=== PATIENT | female | born 1960 | race Caucasian/White ===

== ENCOUNTER 2020-01-24 12:56 | Inpatient (IN) ==
[2020-01-24] MEDS ORDERED: NS 1,000 ML IV PRN (13:22)
--- NOTE | 2020-01-24 14:08 | Diag Imaging Result Doc PS360 ---
CT HEAD W/O CONTRAST - 01/24/2020 INDICATION: WEAKNESS COMPARISON: 11/24/2016 FINDINGS: The ventricles and sulci are normal in size and contour. No intracranial mass or hemorrhage. The skull is intact. The sinuses mastoids and middle ears are clear. IMPRESSION: Negative exam. This exam was performed using automated exposure control, adjustment of mA or kV according to patient size, and/or use of iterative reconstruction technique Electronically signed by Carlos Schmidt 01/24/2020 2:05 PM
--- NOTE | 2020-01-24 14:11 | Diag Imaging Result Doc PS360 ---
CHEST-PORTABLE - 01/24/2020 INDICATION: stroke like symptoms COMPARISON: 06/01/2019 FINDINGS: The lungs are normally expanded and clear. Heart size and mediastinal contours are normal. No pneumothorax or pleural effusion. IMPRESSION: Negative exam. Electronically signed by Carlos Schmidt 01/24/2020 2:09 PM
[2020-01-24] MEDS ORDERED: ASPIRIN PO ONE (14:20)
[2020-01-24 14:44] LABS: URINE SOURCE CLEAN CATCH
[2020-01-24 14:45] LABS: BASO# 0.04 X1000 (0.0-0.2); BASO% 0.9 % (0.0-0.8); EOS% 2.2 % (0.0-10.0); HEMATOCRIT 36.4 % (37.0-47.0); IMM GRAN# 0.02 X1000 (0.0-0.04); IMM GRAN% 0.4 % (0.0-0.5); LYMPH# 0.27 X1000 (1.2-3.4); LYMPH% 5.9 % (20.5-51.1); MONO# 0.48 X1000 (0.11-0.59); MONO% 10.5 % (1.7-9.3); MPV 11.1 FL (7.4-10.4); NEUT# 3.65 X1000 (1.4-6.5); NEUT% 80.1 % (42.2-75.2); PLT 199 X1000 (130-400); RBC 4.44 XMIL (4.2-5.4); RDW 14.2 % (11.5-14.5); WBC 4.56 X1000 (4.8-10.8)
[2020-01-24 14:48] LABS: BILIRUBIN URINE NEGATIVE (NEGATIVE); BLOOD URINE NEGATIVE (NEGATIVE); COLOR YELLOW; GLUCOSE URINE NEGATIVE (NEGATIVE); KETONE URINE NEGATIVE (NEGATIVE); LEUKOCYTES URINE NEGATIVE (NEGATIVE); NITRITE URINE NEGATIVE (NEGATIVE); PH URINE 6.5; PROTEIN URINE NEGATIVE (NEGATIVE); SP GRAVITY URINE 1.009; TURBIDITY URINE CLEAR (CLEAR); UROBILINOGEN URINE NORMAL (NORMAL)
[2020-01-24 14:49] LABS: UR EPITHELIAL CELLS <10 /HPF (<10); URINE BACTERIA NEGATIVE /HPF; URINE RBC <10 /HPF (<10); URINE WBC <10 /HPF (<10)
[2020-01-24 14:52] LABS: INR 0.83; PROTIME 11.4 Seconds (11.0-16.0); PTT 23.6 Seconds (22.3-41.8)
[2020-01-24 15:03] LABS: UR AMPHETAMINES QUAL NONE DETECTED (NONE DETECT); UR BARBITUATES QUAL NONE DETECTED (NONE DETECT); UR BENZODIAZEPIN QUAL NONE DETECTED (NONE DETECT); UR CANNABINOIDS QUAL NONE DETECTED (NONE DETECT); UR COCAINE QUAL NONE DETECTED (NONE DETECT); UR METHADONE QUAL NONE DETECTED (NONE DETECT); UR OPIATES QUAL NONE DETECTED (NONE DETECT); UR OXYCODONE QUAL NONE DETECTED (NONE DETECT); UR PCP QUAL NONE DETECTED (NONE DETECT)
[2020-01-24 15:05] LABS: AGAP 15; ALB/GLOB RATIO 1.7; ALKALINE PHOSPHATASE 110 U/L (32-104); BUN 14 mg/dL (8-22); CALCIUM 9.3 mg/dL (8.8-10.2); CHLORIDE 105 mmol/L (98-107); COSMO 281; CREATININE 0.7 mg/dL (0.5-0.9); ESTIMATED GFR > 60; GLUCOSE 91 mg/dL (70-104); GOT 38 U/L (10-30); GPT 65 U/L (10-36); SODIUM 141 mmol/L (136-145); TCO2 21 mmol/L (25-35); TOTAL BILIRUBIN 0.22 mg/dL (0.20-1.00); TOTAL PROTEIN 6.4 g/dL (6.3-8.3)
--- NOTE | 2020-01-24 15:07 | PROVIDER DOCUMENTATION ---
This chart was entered by Roxi Lopez Scribe, acting as scribe for Danish Olivas MD. HPI-Neurological Disorder - General Chief Complaint: Stroke-Like Symptoms Stated Complaint: MS-UNABLE TO MOVE FOOT Time Seen by Provider: 01/24/20 13:15 Source: patient Allergies/Adverse Reactions: Patient Allergies Allergy/AdvReac Type Severity Reaction Status Date / Time Sulfa (Sulfonamide Allergy RASH Verified 01/13/15 21:36 Antibiotics) Home Medications: Home Medication List Medication Instructions Recorded Confirmed Last Taken Type Baclofen 10 mg PO TID 11/24/16 01/05/19 01/08/19 21:00 History Meloxicam 7.5 mg PO EVERY OTHER DAY 11/24/16 01/05/19 01/08/19 21:00 History Armodafinil [Nuvigil] 150 mg PO DAILY 01/05/19 01/05/19 01/08/19 08:00 History Ascorbic Acid [Vitamin C] 1,000 mg PO DAILY 01/05/19 01/05/19 01/08/19 08:00 History Aspirin 81 mg PO EVERY OTHER DAY 01/05/19 01/05/19 Unknown History Atomoxetine HCl 40 mg PO DAILY 01/05/19 01/05/19 01/08/19 08:00 History C,E,Zinc,Copper 11/Zkwzd7y/Lut 1 ea PO DAILY 01/05/19 01/05/19 01/08/19 08:00 History [Ocuvite Adult 50 Plus Softgel] Calcium Carb,Gluc/Mag Ox,Gluc 1 ea PO DAILY 01/05/19 01/05/19 01/08/19 08:00 History [Calcium Magnesium Caplet] Cholecalciferol (Vitamin D3) 2,000 unit PO DAILY 01/05/19 01/05/19 01/08/19 08:00 History [Vitamin D3] Chromium/Herbal Complex No.238 1 ea PO DAILY 01/05/19 01/05/19 01/08/19 08:00 History [Green Tea Caplet] Fingolimod HCl [Gilenya] 0.5 mg PO DAILY 01/05/19 01/05/19 01/08/19 08:00 History Flaxseed Oil [Flax Seed Oil] 1,000 mg PO DAILY 01/05/19 01/05/1919 08:00 History Folic Acid/Vit B Complex and C 400 mcg PO DAILY 01/05/19 01/05/19 01/08/19 08:00 History [Super B-Complex Folic-Vit C Tb] Levothyroxine Sodium [Synthroid] 0.5 tab PO DAILY 01/05/19 01/05/19 01/08/19 08 :00 History Milk Thistle/Nac/Dandel/[place] 1 ea PO DAILY 01/05/19 01/05/19 01/08/19 08:00 History [Liver Complex Tablet] [place]-3 Fatty Acids/Fish Oil [Fish 1 ea PO DAILY 01/05/19 01/05/19 01/08/19 08:00 History Oil 1,000 mg Capsule] Temazepam 15 mg PO DAILY 01/05/19 01/05/19 01/08/19 08:00 History Turmeric Root Extract [Turmeric 500 mg PO DAILY 01/05/19 01/05/19 01/08/19 08:00 History Curcumin] Ubidecarenone [Co Q-10] 100 mg PO DAILY 01/05/19 01/05/19 01/08/19 08:00 History Vitamin E 1,000 unit PO DAILY 01/05/19 01/05/19 01/08/19 08:00 History Docusate Sodium [Colace] 100 mg PO BID #30 cap 01/09/19 Unknown Rx Hydrocodone/Acetaminophen [[place] 1 ea PO Q4-6H PRN PRN #20 tab 01/09/19 Unknown Rx 7.5-325 Tablet] Ondansetron HCl [Zofran] 4 mg PO PRN PRN #10 tab 01/09/19 Unknown Rx - History of Present Illness-Neuro Nature of Presenting Problem: pt is a 60 yowf c/o LLE weakness and pain. pt sts got up at 0643 and symptoms worsened and is unable to use LLE. pt has hx of MS and is [place]. [place] pt also reports mild lopez. pt is in NAD. Severity: reports: mild Onset/Duration: reports: gradual, this morning Timing: reports: still present, getting worse Context: reports: other (LLE weak and painful) Character of Altered Mental Status: reports: N/A Any recent trauma/injury?: reports: none Character of Deficits: reports: new weakness New weakness or altered sensation location:: reports: LLE Cognitive Baseline: alert, oriented x3 Gait Baseline: walks without assistance Associated Symptoms: reports: headache Review of Systems - Adult - REVIEW OF SYSTEMS - ADULT Constitutional: reports: no symptoms reported. denies: fever, fatique, night sweats Eyes: reports: no symptoms reported Ears, Nose, Mouth & Throat: reports: no symptoms reported Cardiovascular: reports: no symptoms reported Respiratory: reports: no symptoms reported Gastrointestinal: reports: no symptoms reported Genitourinary: reports: no symptoms reported Musculoskeletal: reports: see HPI, bone pain (LLE), muscle weakness (LLE) Integumentary: reports: no symptoms reported Neurological: reports: see HPI, headache/migraines. denies: loss of balance, numbness, paresthesia, tremors Psychiatric: reports: no symptoms reported Endocrine: reports: no symptoms reported Hematologic/Lymphatic: reports: no symptoms reported Allergic/Immunologic: reports: no symptoms reported All Other Systems: Reviewed and Negative Past History - Adult - PAST MEDICAL HISTORY-ADULT Review of Records: reports: Nursing Assessment Review, Medications Reviewed, Social history reviewed & non-contributory. Major Childhood Illnesses: reports: denies history Cardiovascular: reports: heart valve problem (Mitral valve prolapse) Respiratory: reports: denies history Gastrointestinal: reports: denies history Obstetrical/Gynecological: reports: denies history Genitourinary: reports: denies history Musculoskeletal: reports: denies history Neurological: reports: Multiple Sclerosis Endocrine/Immune: reports: denies history Other Conditions: reports: denies history - PRIOR SURGERIES/PROCEDURES Surgical/Procedure History: reports: BTL, other (Tubal ligation and rt foot surgery) - IMMUNIZATION STATUS Childhood Immunizations: See Nurse Assessment Flu Vaccine: See Nurse Assessment - FAMILY HISTORY Family History: reviewed, not pertinent - SOCIAL HISTORY Smoking: non-smoker Substance Use: none/never Physical Exam- Neurological - Physical Exam-Neuro Initial Vital Signs Reviewed: Yes General Appearance: appears well, alert, no apparent distress. negative: slow to respond, obtunded, combative Eye Exam: bilateral eye: normal inspection, PERRL, EOMI HENMT: normocephalic/atraumatic, moist mucous membranes Head Injury: no evidence of injury Neck: non-tender, full range of motion, supple, normal inspection Respiratory: chest non-tender, lungs clear, normal breath sounds Cardiovascular: normal peripheral pulses, regular rate, rhythm Abdominal Exam: normal bowel sounds, non tender, soft Extremity: abnormal NV exam (LLE new weakness), tenderness (mild tenderness on palp LLE). 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 negative: no motor deficit, sensory deficit, weak motor strength RUE, weak motor strength LUE Neurologic: motor weakness (LLE). negative: grossly normal, no motor/sensory deficits, sensory deficit Integumentary: normal color, normal turgor, warm/dry Psych/Mental Status: normal mood/affect, normal thought content, normal thought process, oriented x 3 - Glascow Coma Scale Best Eye Response: (4) open spontaneously Best Verbal Response: (5) oriented Best Motor Response: (6) obeys commands Total Glascow Score: 15 Progress - PLAN OF CARE/RESULTS Progress/Plan/Lab Results: Vital Signs - 8 hr 01/24/20 13:05 Temperature 98.1 F Pulse Rate 79 Respiratory Rate 16 Blood Pressure 137/81 O2 Sat by Pulse Oximetry 98 Laboratory Results - last 24 hr 01/24/20 01/24/20 01/24/20 13:54 14:07 14:07 WBC RBC Hgb Hct MCV MCH MCHC RDW Std Deviation Plt Count MPV Immature Gran % (Auto) Neut % (Auto) Lymph % (Auto) [place] % (Auto) Eos % (Auto) Baso % (Auto) Immature Gran # (Auto) Neut # (Auto) Lymph # (Auto) [place] # (Auto) Eos # (Auto) Baso # (Auto) PT INR PTT (Actin FS) Sodium Potassium Chloride Carbon Dioxide Anion Gap BUN Creatinine Estimated GFR/1.73 m2 BUN/Creatinine Ratio Glucose POC Glucose 86 Calculated Osmolality Calcium Total Bilirubin AST ALT Alkaline Phosphatase Troponin T High Sens Total Protein Albumin Globulin Albumin/Globulin Ratio Urine Source CLEAN CATCH Urine Color YELLOW Urine Turbidity CLEAR Urine pH 6.5 Ur Specific [place] 1.009 Urine Protein NEGATIVE Ur Glucose (Stick) NEGATIVE Ur Ketones (Stick) NEGATIVE Urine Blood NEGATIVE Urine Nitrite NEGATIVE Urine Bilirubin NEGATIVE Urobilinogen Dipstick NORMAL Urine Leukocytes NEGATIVE Urine WBC (Auto) <10 Urine RBC (Auto) <10 U Epithel Cells (Auto) <10 Urine Bacteria (Auto) NEGATIVE Urine Opiates Screen NONE DETECTED Ur Oxycodone Screen NONE DETECTED Ur Methadone, Qual NONE DETECTED Ur Barbiturates Screen NONE DETECTED Ur Phencyclidine Scrn NONE DETECTED Ur Amphetamines Screen NONE DETECTED U Benzodiazepines Scrn NONE DETECTED Urine Cocaine Screen NONE DETECTED U Cannabinoids Screen NONE DETECTED 01/24/20 01/24/20 01/24/20 14:31 14:31 14:31 WBC 4.56 L RBC 4.44 Hgb 12.0 Hct 36.4 L MCV 82.0 MCH 27.0 MCHC 33.0 RDW Std Deviation 14.2 Plt Count 199 MPV 11.1 H Immature Gran % (Auto) 0.4 Neut % (Auto) 80.1 H Lymph % (Auto) 5.9 L [place] % (Auto) 10.5 H Eos % (Auto) 2.2 Baso % (Auto) 0.9 H Immature Gran # (Auto) 0.02 Neut # (Auto) 3.65 Lymph # (Auto) 0.27 L [place] # (Auto) 0.48 Eos # (Auto) 0.10 Baso # (Auto) 0.04 PT INR PTT (Actin FS) Sodium 141 Potassium 4.0 Chloride 105 Carbon Dioxide 21 L Anion Gap 15 BUN 14 Creatinine 0.7 Estimated GFR/1.73 m2 > 60 BUN/Creatinine Ratio 20 Glucose 91 POC Glucose Calculated Osmolality 281 Calcium 9.3 Total Bilirubin 0.22 AST 38 H ALT 65 H Alkaline Phosphatase 110 H Troponin T High Sens < 6 Total Protein 6.4 Albumin 4.0 Globulin 2.4 Albumin/Globulin Ratio 1.7 Urine Source Urine Color Urine Turbidity Urine pH Ur Specific [place] Urine Protein Ur Glucose (Stick) Ur Ketones (Stick) Urine Blood Urine Nitrite Urine Bilirubin Urobilinogen Dipstick Urine Leukocytes Urine WBC (Auto) Urine RBC (Auto) U Epithel Cells (Auto) Urine Bacteria (Auto) Urine Opiates Screen Ur Oxycodone Screen Ur Methadone, Qual Ur Barbiturates Screen Ur Phencyclidine Scrn Ur Amphetamines Screen U Benzodiazepines Scrn Urine Cocaine Screen U Cannabinoids Screen 01/24/20 14:31 WBC RBC Hgb Hct MCV MCH MCHC RDW Std Deviation Plt Count MPV Immature Gran % (Auto) Neut % (Auto) Lymph % (Auto) [place] % (Auto) Eos % (Auto) Baso % (Auto) Immature Gran # (Auto) Neut # (Auto) Lymph # (Auto) [place] # (Auto) Eos # (Auto) Baso # (Auto) PT 11.4 INR 0.83 PTT (Actin FS) 23.6 Sodium Potassium Chloride Carbon Dioxide Anion Gap BUN Creatinine Estimated GFR/1.73 m2 BUN/Creatinine Ratio Glucose POC Glucose Calculated Osmolality Calcium Total Bilirubin AST ALT Alkaline Phosphatase Troponin T High Sens Total Protein Albumin Globulin Albumin/Globulin Ratio Urine Source Urine Color Urine Turbidity Urine pH Ur Specific [place] Urine Protein Ur Glucose (Stick) Ur Ketones (Stick) Urine Blood Urine Nitrite Urine Bilirubin Urobilinogen Dipstick Urine Leukocytes Urine WBC (Auto) Urine RBC (Auto) U Epithel Cells (Auto) Urine Bacteria (Auto) Urine Opiates Screen Ur Oxycodone Screen Ur Methadone, Qual Ur Barbiturates Screen Ur Phencyclidine Scrn Ur Amphetamines Screen U Benzodiazepines Scrn Urine Cocaine Screen U Cannabinoids Screen Orders Category Date Time Status Cardiac Monitoring DIRECTED Care 01/24/20 13:22 Active Finger Stick Blood Sugar (ED) DIRECTED Care 01/24/20 13:22 Active Misc. NRSG Communication Order DIRECTED Care 01/24/20 13:22 Active Saline Loc NOW Care 01/24/20 13:22 Active CHEST-PORTABLE [RAD] Stat Exams 01/24/20 13:[address] HEAD W/O CONTRAST [CT] Stat Exams 01/24/20 13:13 Completed CBC WITH ELECTRONIC DIFF [HEME] Stat Lab 01/24/20 14:31 Completed COMPREHENSIVE METABOLIC PANEL [CHEM] Stat Lab 01/24/20 14:31 Completed CRP HIGH SENSITIVITY Stat Lab 01/24/20 15:06 Ordered PROTIME WITH INR [COAG] Stat Lab 01/24/20 14:31 Completed PTT [COAG] Stat Lab 01/24/20 14:31 Completed SED RATE [HEME] Stat Lab 01/24/20 15:06 Ordered TROPONIN T HIGH SENSITIVITY Stat Lab 01/24/20 14:31 Completed URINALYSIS W/POSS RFLX CULT [URINALYSIS] Stat Lab 01/24/20 14:07 Completed URINE DRUG SCREEN Stat Lab 01/24/20 14:07 Completed 0.9% Sodium Chloride Inj [Ns] 1,000 ml Med 01/24/20 13:22 Active IV 100 mls/hr Aspirin Med 01/24/20 14:20 Discontinued 325 mg PO NOW ONE EKG [EKG] Stat Ther 01/24/20 13:22 Ordered Result Diagrams: 01/24/20 14:31 01/24/20 14:31 - REASSESSMENT Reassessment #1 Time Reassessed: 14:38 Status: unchanged (NO CHANGE IN SYMPTOMS. NOT CANDIDATE FOR TPA DUE TO ONSET > 4.5 HRS AND SYMPTOMS NOT DEFINITELY DUE TO ISCHEMIC STROKE. POSSIBLE MS. DISCUSSED WITH HOSPITALIST - AWAITING LAB RESULTS WILL ADMIT) - XRAY 1 XRAY Study: Chest Impression: Normal, See EMR Report ( CHEST-PORTABLE - 01/24/2020 INDICATION: stroke like symptoms COMPARISON: 06/01/2019 FINDINGS: The lungs are normally expanded and clear. Heart size and mediastinal contours are normal. No pneumothorax or pleural effusion. IMPRESSION: Negative exam. Electronically signed by Carlos Schmidt 01/24/2020 2:09 PM) - CT/MRI 1 CT Study: Head Impression: Normal, See EMR Report ( CT HEAD W/O CONTRAST - 01/24/2020 INDICATION: WEAKNESS COMPARISON: 11/24/2016 FINDINGS: The ventricles and sulci are normal in size and contour. No intracranial mass or hemorrhage. The skull is intact. The sinuses mastoids and middle ears are clear. IMPRESSION: Negative exam. This exam was performed using automated exposure control, adjustment of mA or kV according to patient size, and/or use of iterative reconstruction technique Electronically signed by Carlos Schmidt 01/24/2020 2:05 PM) - CONSULTS/PCP/HOSPITALIST Notification #1 *Consult/PCP/Hospitalist*: Melissa Time Discussed: 14:28 Consult Disposition: Admit, other Departure - Departure Date of Disposition Decision: 01/24/20 Time of Disposition Decision: 14:37 DIAGNOSIS: CVA (cerebral vascular accident) Disposition: ADMITTED INPATIENT 09 Certified Medical Emergency: Emergent Condition: Stable Referrals and Follow-Ups: Brody Contreras MD [Primary Care Provider] - - Critical Care Note This patient required my direct & personal management of CC.: No Attestation - Physician/ RAZIA Attestation Patient care was provided by Advanced Practice Provider:: No The physician spent face to face time with patient:: Yes Advanced Practice Provider documentation review:: Supervising physician onsite and consulted in the evaluation and care of this patient. The physician did have a face to face encounter with the patient. - NIH Stroke Scale NIH Type: Initial Evaluation Level of Consciousness: 0-Alert LOC Questions (ask month and age): 0-Answers Both Correctly LOC Commands (ask to open & close eyes;make a fist, let go): 0-Obeys Both Correctly Best Gaze (horizontal eye movement): 0-Normal Visual (use finger movement, counting or visual threat): 0-No Visual Loss Facial Palsy (show teeth or raise eyebrows & close eyes tght: 0-Symmetrical Movement Motor Function-left arm: 0-Normal Motor Function-right arm: 0-Normal Motor Function-left le-Some Effort Against [place] Motor Function-right le-Normal Limb Ataxia(zhoheh-bxpm-dvflie, or heel to brito): 0-No Ataxia Sensory(pin prick to face,arms,trunk,legs-compare side/side): 0-No Ataxia Best Language(name item/read sentence.Ex-Down to Earth): 0-No Aphasia Dysarthria(Pt read words or say words Ex.Mama,Tip-Top,Thanks: 0-Normal Articulation Extinction and Inattention: 0-Normal Stroke tPA Guidelines - Inclusion Criteria for IV tPA Onset <3 hours ago *OR* 3-4.5 hours ago: No This chart was documented by the indicated scribe, (Roxi Lopez, Scribe) and accurately reflects the services I performed and decisions made by me, Danish Olivas MD, as attested by the provider's signature.
[2020-01-24] MEDS: NS 1,000 ML IV SCH (16:00)
--- NOTE | 2020-01-24 16:32 | HISTORY AND PHYSICAL ---
PRIMARY CARE PHYSICIAN: Dr. Brody Contreras. CHIEF COMPLAINT: Left lower extremity weakness. HISTORY OF PRESENT ILLNESS: This is a 60-year-old female with a history of multiple sclerosis that affected the right side and hypothyroid. She presents to the emergency room after waking this morning with inability to move her left leg, having numbness to her left groin and perineal area. 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 She stated when she went to bed she was in her normal state of health. This morning she got up to go the bathroom, was unable to move her left leg. She does have chronic right side weakness due to her MS. She states that she tried to hold onto the wall and make it to the bathroom, but she fell. In the emergency room she was noted to have left lower extremity weakness. She also complains of her posterior leg from just at the lower buttocks area down to feeling like it is being shocked with electricity when you touch it or move her leg. She does state this is new also. PAST MEDICAL HISTORY: Multiple sclerosis with right-sided weakness, mitral valve prolapse, hypothyroid. PAST SURGICAL HISTORY: Cholecystectomy. SOCIAL HISTORY: She denies any alcohol, tobacco, or illicit drug use. She is , lives with her . ALLERGIES: Sulfa, which causes a rash. HOME MEDICATIONS: A list will be obtained by the nursing staff and once verified will review and restart as appropriate. REVIEW OF SYSTEMS: Discussed with patient with pertinent positives stated in the HPI. She denied any syncope or dizziness, any chest pain or palpitations, any cough, fever, chills, night sweats, any nausea, vomiting, diarrhea, constipation, black or bloody vomitus or stools or any hematuria or dysuria. PHYSICAL EXAMINATION: GENERAL: This is a 60-year-old female who is lying on the stretcher in the emergency room in no distress. VITAL SIGNS: Blood pressure is 137/81 with heart rate of 79, respirations are 16, temperature is 98.1 degrees with room air saturations 98%. EYES: Pupils equal, round, react to light. EOMs are intact. Sclerae anicteric. HEENT: Head is normocephalic, atraumatic. Mucous membranes are moist. NECK: Supple with trachea midline. CARDIOVASCULAR: Regular rate and rhythm. S1 and S2 are appreciated. No murmur. PULMONARY: Breath sounds are clear. No increased work of breathing noted. Chest rises and falls symmetrically with respiration. GASTROINTESTINAL: Abdomen is soft, nontender, nondistended with bowel sounds in all four quadrants. EXTREMITIES: No clubbing, cyanosis, or edema. NEUROLOGIC: She is alert and oriented. Pupils are equal, round, react to light. EOMs are intact. Speech is clear. She has no tongue or uvula deviation. Equal nasal flaring. Equal shoulder shrug. She has no pronator drift. Wet Process Operator are equal. She does not move left lower extremity. She does complain of pain and tenderness on palpation. LABS: WBC is 4.5 with hemoglobin 12, hematocrit 36.4, and platelets 199,000. INR 0.83. Sodium 141, potassium 4, BUN 14, creatinine 0.7 with a glucose of 91. Urinalysis is essentially negative. Urine drug screen reveals none detected. IMAGING: CT of the head, negative exam. Ventricles and sulci are normal in size and color. No intracranial mass or hemorrhage. Skull is intact. Sinuses, mastoids, and middle ears are clear. Chest x-ray revealed negative exam. Lungs are normally expanded and clear. Heart size and mediastinal contours are normal. No pneumothorax or pleural effusion. ASSESSMENT AND PLAN: 1. Cerebrovascular accident. She will be admitted to the hospital and neuro checks per stroke protocol. Check MRI in the morning. 2. Hypothyroid. We will check a TSH. Identify her medications and continue. 3. Multiple sclerosis with right-sided weakness. We will continue home medications as appropriate once they are identified. 4. Obstructive sleep apnea. 5. Lumbar spine. Plan was discussed with Dr. Matthew. Further treatments pending hospital course. Dictated by ISA Mendoza for Yann Matthew MD cc: ISA Mendoza MD
[2020-01-24] MEDS ORDERED: SOLU-MEDROL IV ONE (16:43)
--- NOTE | 2020-01-24 17:34 | HISTORY AND PHYSICAL ---
ADDENDUM: Ms. Jin is a 60-year-old female who is a patient of Dr. Wolf being followed up for multiple sclerosis. She is on fingolimod daily to prevent relapse. 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 As the day progressed she was not able to able to move the entire lower extremity and now she is having a lot of pain has come up to her lower abdomen and she does not feel when she is using the restroom. She has been admitted for a possible MS flare. We are going to start her on stress dose of steroids and will get MRIs in the morning and get neurology also to evaluate her. PHYSICAL EXAM: Ms Jin has 0 power in the left lower extremity. She has feeling which is extremely tender but she is not able to move the extremity at all. Please refer to the details of the history and physical that has been dictated by the MANUFACTURING ENGINEER ASSEMBLY in the chart. I have discussed the plan with her. I have also discussed my findings and the plan with Ms Jin. ASSESSMENT: Left lower extremity monoplegia associated with urinary incontinence, questionable for multiple sclerosis flare. Patient will be treated as MS flare. cc: Yann Matthew MD [facility]PITALJonathan
[2020-01-24] MEDS ORDERED: SOLU-MEDROL 1,000 MG in NS 100 ML IV ONE (18:00)
[2020-01-24] MEDS: HUMALOG SUBQ SCH (21:39)
[2020-01-25] MEDS ORDERED: NORCO-5 PO ONE (04:29)
[2020-01-25] MEDS: NS 1,000 ML IV SCH ×2 (04:32→18:57)
[2020-01-25] MEDS: LIORESAL PO PRN ×3 (05:03→21:29)
[2020-01-25] MEDS: HUMALOG SUBQ SCH ×4 (06:56→21:29)
[2020-01-25 07:00] LABS: HEMATOCRIT 39.1 % (37.0-47.0); HEMOGLOBIN 12.7 g/dL (12.0-16.0); LYMPH# 0.09 X1000 (1.2-3.4); LYMPH% 1.9 % (20.5-51.1); MCHC 32.5 g/dL (33-37); MONO# 0.03 X1000 (0.11-0.59); MONO% 0.6 % (1.7-9.3); MPV 11.5 FL (7.4-10.4); NEUT% 97.5 % (42.2-75.2); PLT 220 X1000 (130-400); RBC 4.71 XMIL (4.2-5.4); RDW 14.4 % (11.5-14.5); WBC 4.62 X1000 (4.8-10.8)
[2020-01-25 07:19] LABS: BANDS 4 % (0-1); LYMPHS 2 % (21-51); SEGS 94 % (42-75)
[2020-01-25] MEDS: SYNTHROID PO SCH (07:24)
[2020-01-25 07:32] LABS: AGAP 13; ALB/GLOB RATIO 1.5; ALBUMIN 4.1 g/dL (3.5-5.0); ALKALINE PHOSPHATASE 118 U/L (32-104); BUN 11 mg/dL (8-22); CALCIUM 9.2 mg/dL (8.8-10.2); CHLORIDE 105 mmol/L (98-107); COSMO 283; CREATININE 0.7 mg/dL (0.5-0.9); ESTIMATED GFR > 60; GLUCOSE 148 mg/dL (70-104); GOT 46 U/L (10-30); GPT 74 U/L (10-36); POTASSIUM 4.1 mmol/L (3.5-5.1); SODIUM 141 mmol/L (136-145); TCO2 23 mmol/L (25-35); TOTAL BILIRUBIN 0.39 mg/dL (0.20-1.00); TOTAL PROTEIN 6.9 g/dL (6.3-8.3)
[2020-01-25] MEDS: SOLU-MEDROL 1,000 MG in NS 100 ML IV SCH (08:46)
[2020-01-25] MEDS ORDERED: SOLU-MEDROL IV SCH (09:00)
--- NOTE | 2020-01-25 12:51 | NEUROLOGY CONSULTATION ---
DATE: 01/25/2020 LOCATION: Room 427. HISTORY OF PRESENT ILLNESS: Ms. Jin is 60 years old, and she reports recent left leg pain, weakness, and tingling to the point she could not stand or walk. History from the patient is that she gave elective blood donation 3 days ago, and felt well afterwards. She spent a few hours gardening with her grandson later that day, and continued to feel well. When she finished that, she had been kneeling for 20 minutes, stood and felt lightheaded. There was a chair nearby, and she sat down. She reports she next realized she was "waking up" in the chair. Almost immediately, she felt nauseated and vomited on the garage floor. Family helped her inside, and she rested on the couch for the rest of the day, then went to bed, slept well and felt good the next morning. That next day, 2 days ago, she spent most of the day very active, painting outside, up and down 6 foot and 10 foot ladders with short rest breaks throughout the day. Her legs got a little bit sore by the end of the day, but there was no focal neurologic problem. She rested well the next night, and then woke yesterday morning feeling well, except for soreness in the legs. Later in the day yesterday, she noticed increased soreness in her left leg, pain particularly prominent along the posterior aspect of the left leg from the buttock to the calf. She does not describe definite radicular pain. She had a sense of incomplete bladder emptying, but no incontinence. She had some tingling mostly in the left foot. She had some soreness in the right leg, but no weakness or tingling in the right leg. Eventually, while resting, she had a sense that she could not move her left leg, particularly that she could not move her left foot. She was brought to the hospital, evaluated, and admitted. Today, she believes the left leg is significantly improved, but not back to baseline. There is reported to be a diagnosis of multiple sclerosis made in 2007 after a few years of transient symptoms affecting the right limbs. She reports that at the time of onset of her current problem, there was not a definite neurologic deficit attributed to MS, and specifically no problems using the right limbs. She has been taking fingolimod regularly. She has followup for MS with Dr. Wolf in [place], last visit a few months ago, by her report. Home medicine list includes temazepam, Nuvigil, baclofen, thyroid replacement, meloxicam, and a number of vitamins, herbs, supplements. She reports no recent medication changes. Workup here includes lab showing liver enzymes elevated now, in a range similar to what has been recorded on prior lab reports in this computer before. She reports that abnormal liver enzymes has been a chronic finding with extensive prior workup, including liver biopsy and no diagnosis. She believes that is not related to any of her current medications. Blood sugars have ranged 90s to 150s. Urine drug screen was all negative. Brain, spine MRI are ordered. She has been afebrile. PHYSICAL EXAMINATION: On exam, Ms. Jin is awake, alert, attentive, appropriate, oriented. Speech is not dysarthric. Language function is intact on brief bedside testing. Recent and remote memory are good. Head and neck are unremarkable. Visual taylor are full to confrontational finger counting. Extraocular movements are normal vertically and horizontally. Pupils react to light. Facial motility is symmetric. Facial sensation is intact to pinprick and light touch testing. Gag is intact. Tongue is midline. She can hear. Shoulder shrug is symmetric. Strength is normal in the arms and in the right leg. On the left, power is slow to muster. She did not raise her left leg briskly when asked. She demonstrated good power in the left quadriceps, but generated that power slowly. I could not get her to demonstrate full power in the left anterior tibialis. Limb tone is symmetric. Reflexes are 1+ at the wrists, 2+ at the right knee, 1+ at the left knee, trace at the ankles. Plantar response is silent bilaterally. Proprioception is good at the great toe MTP joint bilaterally. She reports good pinprick appreciation over the legs bilaterally. I did not test her gait. Straight leg raising is negative bilaterally. IMPRESSION: Subjective left leg pain, weakness, tingling, and associated report of sense of urinary hesitancy and incomplete bladder emptying. All of this is worrisome with her reported prior diagnosis of multiple sclerosis, but the onset is more brisk than would be typical. Spinal lesion might account for urinary hesitancy, but would not explain sensory and motor deficit in the same limb. Right hemisphere lesion might explain sensory and motor deficit in the left leg, but generally would not produce urinary obstructive symptoms. Clinical findings are equivocal. She has extensive MRI studies ordered, and I do not have any urgent suggestion. Further plans will depend on those reports and on her clinical course. I encouraged her to be careful with activities, and not to be up without assistance until we see this improved. Thank you for asking Neurology to see Ms. Jin. cc: MD CATHY Garcia III
--- NOTE | 2020-01-25 13:37 | Diag Imaging Result Doc PS360 ---
EXAM: MRI BRAIN W/WO CONTRAST INDICATION: cva COMPARISON: 12/14/2011 FINDINGS: There is no evidence of acute infarct. There is patchy T2/FLAIR hyperintensity in the periventricular and subcortical white matter suggesting mild microangiopathy. It is essentially stable. There is no discrete intracranial mass, mass effect, or intracranial hemorrhage. There is no evidence of abnormal intracranial enhancement. The surrounding soft tissues and bony structures are essentially unremarkable. 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 No evidence of acute intracranial pathology. Electronically signed by Jung Lopez 01/25/2020 1:34 PM
--- NOTE | 2020-01-25 13:53 | Diag Imaging Result Doc PS360 ---
EXAM: MRI C-SPINE W/WO CONTRAST HISTORY: cva TECHNIQUE: MRI cervical spine with and without intravenous contrast. Axial and sagittal images obtained in multiple sequences. These are followed the post contrasted axial and sagittal images. COMPARISON: 12/14/2011 FINDINGS: Mild scoliosis. No subluxation. Small degenerative bone spurs. C2-3: Normal disc. No spinal stenosis or cord compression. Neither neural foramen is narrowed. C3-4: Normal disc. No spinal stenosis or cord compression. Neither neural foramen is narrowed. C4-5: Narrowed disc space. Small disc bulge resulting in mild spinal stenosis. No cord compression. Neither neural foramen is narrowed. C5-C6: Small bulging disc. There is mild spinal stenosis. No cord compression. Neither neural foramen is narrowed. C6-7: Normal disc. No spinal stenosis or cord compression. Neither neural foramen is narrowed. C7-T1: Normal disc. No spinal stenosis or cord compression. Neither neural foramen is narrowed. No disc herniation. No disc fragment. No focal abnormality to the cervical cord. No enhancing lesion on the post contrasted images. IMPRESSION: Small disc bulges, but no disc herniation or cord compression Electronically signed by Pablo Parker 01/25/2020 1:51 PM
--- NOTE | 2020-01-25 13:58 | Diag Imaging Result Doc PS360 ---
EXAM: MRI THORACIC SPINE W/WO CON HISTORY: cva TECHNIQUE: MRI thoracic spine with and without contrast. Axial and sagittal images obtained in multiple sequences. These are followed by post contrasted axial and sagittal images. COMPARISON: None. FINDINGS: There is good alignment to the thoracic spine. No compressed vertebra. No subluxation. There is a hemangioma in a mid thoracic vertebra. No disc herniation. No disc fragment. No spinal stenosis or cord compression. No enhancing lesion on the post contrasted images. IMPRESSION: No acute abnormality. Electronically signed by Pablo Parker 01/25/2020 1:56 PM
--- NOTE | 2020-01-25 14:11 | Diag Imaging Result Doc PS360 ---
EXAM: MRI LUMBAR SPINE W/WO CONTRAST HISTORY: cva TECHNIQUE: MRI lumbar spine with and without intravenous contrast. Axial and sagittal images obtained in multiple sequences. These are followed the post contrasted axial and sagittal images. COMPARISON: 12/14/2011 FINDINGS: There is good alignment to the lumbar spine. No compressed vertebra. No subluxation. The conus is at T12-L1. T12-L1: Normal disc. No spinal stenosis. Neither neural foramen is narrowed. L1-2: Mild bulging disc. No spinal stenosis. Neither neural foramen is narrowed. L2-3: Small bulging disc. Mild facet hypertrophy. Findings result in mild spinal stenosis. Neither neural foramen is narrowed. L3-4: Small disc bulge. Mild facet hypertrophy. Minimal spinal stenosis. Neither neural foramen is narrowed. L4-5: Narrowed disc space. Prominent facet hypertrophy. Minimal spinal stenosis. Neither neural foramen is narrowed. L5-S1: Small bulging disc. Severe facet hypertrophy. Minimal spinal stenosis. Mild narrowing of the left neural foramen. No disc herniation. No disc fragment. There are small Tarlov cysts. The largest measures 10 mm. No enhancing lesion on the post contrasted images. IMPRESSION: 1.No disc herniation or disc fragment 2.Small Tarlov cysts Electronically signed by Pablo Parker 01/25/2020 2:08 PM
[2020-01-25] MEDS: TYLENOL PO PRN ×2 (14:46→21:28)
--- NOTE | 2020-01-25 15:01 | PROGRESS NOTE ---
DATE: 01/25/2020 SUBJECTIVE: I have seen and examined Ms. Jin today. Initially, when I went in, she was actually beginning to start physical therapy. I saw her walk in the room with a walker with the physical therapist. After her physical therapy, I went back. She was sitting up in a chair. She says she is feeling a little better. She thinks the strength in the left lower extremity is getting back but the leg is still sore. OBJECTIVE: Vital Signs: Blood pressure of 134/72, pulse of 90, respirations are 16, temperature is 98.4 degrees, the patient is saturating 95% on room air. General Examination: Ms. Jin is a 60-year-old, female. She was sitting in a chair. No distress. HEENT: Mucosa is pink and moist. Anicteric. Acyanotic. Neck: Supple. Chest: Clear to auscultation. No crepitations. No rhonchi. Cardiovascular: Regular rate and rhythm. No murmurs, no rubs, no gallops. GI: Abdomen was soft, nontender. Bowel sounds are present. Extremities: No pedal edema. ATM TECHNICIAN: The patient is awake, alert, and oriented. The patient still has remarkably low power in the left lower extremity. However, she seems to move it better than yesterday. The leg continues to be very tender on exploration. Laboratory Data: Has been reviewed and completely unremarkable. Chemistry is also unremarkable. Imaging Studies: Including MRI of the brain this morning shows evidence of mild white matter microangiopathy. No evidence of acute disease. A cervical spine MRI shows small disk bulges but no disk herniation or cord compression. A thoracic MRI shows no acute abnormality. The lumbar spine shows no disk herniation or disk fragment. There was a small Tarlov cyst. ASSESSMENT: 1. Left lower extremity monoparesis with tenderness associated with urinary incontinence, concerning for multiple sclerosis flare in a patient who has a history of multiple sclerosis. Patient's MRIs have all been completely unremarkable. No active plaque to suggest active multiple sclerosis. I am unsure the reason for the patient's current neurological symptoms. We are going to continue at least for the steroid treatment for 5 days and wait for recommendations from neurology. We will also encourage Ms. Jin to continue with physical therapy. Disposition. I think we will wait for further recommendations from neurology to make a final disposition plan. cc: Yann Matthew MD [facility]
[2020-01-25] MEDS: VALTREX PO SCH ×2 (15:44→21:29)
[2020-01-25] MEDS: PATIENT'S OWN MED PO SCH (19:30)
[2020-01-25] MEDS: RESTORIL PO PRN (21:29)
[2020-01-26 01:02] LABS: HEMATOCRIT 34.1 % (37.0-47.0); IMM GRAN# 0.03 X1000 (0.0-0.04); IMM GRAN% 0.3 % (0.0-0.5); LYMPH% 2.8 % (20.5-51.1); MCHC 32.3 g/dL (33-37); MCV 83.8 FL (81-99); MONO# 0.61 X1000 (0.11-0.59); MONO% 5.7 % (1.7-9.3); MPV 11.1 FL (7.4-10.4); NEUT# 9.68 X1000 (1.4-6.5); NEUT% 91.2 % (42.2-75.2); PLT 216 X1000 (130-400); RBC 4.07 XMIL (4.2-5.4); RDW 14.5 % (11.5-14.5); WBC 10.62 X1000 (4.8-10.8)
[2020-01-26 01:05] LABS: INR 0.94; PROTIME 12.6 Seconds (11.0-16.0); PTT 21.2 Seconds (22.3-41.8)
[2020-01-26 01:13] LABS: LYMPHS 2 % (21-51); MONO 3 % (1-9); SEGS 95 % (42-75)
[2020-01-26 01:14] LABS: AGAP 12; ALB/GLOB RATIO 2.2; ALBUMIN 3.8 g/dL (3.5-5.0); ALKALINE PHOSPHATASE 96 U/L (32-104); BUN 13 mg/dL (8-22); CALCIUM 8.7 mg/dL (8.8-10.2); CHLORIDE 109 mmol/L (98-107); COSMO 288; CREATININE 0.6 mg/dL (0.5-0.9); ESTIMATED GFR > 60; GLUCOSE 145 mg/dL (70-104); GOT 81 U/L (10-30); GPT 107 U/L (10-36); POTASSIUM 4.1 mmol/L (3.5-5.1); SODIUM 143 mmol/L (136-145); TCO2 22 mmol/L (25-35); TOTAL BILIRUBIN 0.22 mg/dL (0.20-1.00); TOTAL PROTEIN 5.5 g/dL (6.3-8.3)
[2020-01-26 01:17] LABS: CK PROFILE 863 U/L (24-173)
[2020-01-26 01:47] LABS: CK INDEX 2.2 (0.0-2.5); CK-MB 19.04 ng/mL (0.0-5.0)
[2020-01-26 05:49] LABS: HEMATOCRIT 35.5 % (37.0-47.0); HEMOGLOBIN 11.3 g/dL (12.0-16.0); MCH 26.7 PG (27-31); MCHC 31.8 g/dL (33-37); MCV 83.7 FL (81-99); MPV 11.2 FL (7.4-10.4); RBC 4.24 XMIL (4.2-5.4); RDW 14.7 % (11.5-14.5); WBC 12.02 X1000 (4.8-10.8)
[2020-01-26 06:24] LABS: AGAP 11; ALBUMIN 3.7 g/dL (3.5-5.0); BUN 12 mg/dL (8-22); CALCIUM 8.9 mg/dL (8.8-10.2); CHLORIDE 106 mmol/L (98-107); COSMO 279; CREATININE 0.7 mg/dL (0.5-0.9); ESTIMATED GFR > 60; GLUCOSE 137 mg/dL (70-104); PHOSPHORUS 2.7 mg/dL (2.7-4.5); SODIUM 139 mmol/L (136-145); TCO2 22 mmol/L (25-35)
[2020-01-26] MEDS: HUMALOG SUBQ SCH ×4 (06:39→23:51)
[2020-01-26] MEDS: LIORESAL PO PRN ×3 (06:57→21:25)
[2020-01-26] MEDS: SYNTHROID PO SCH (06:57)
[2020-01-26] MEDS: TYLENOL PO PRN ×3 (06:57→21:25)
[2020-01-26] MEDS: NS 1,000 ML IV SCH ×2 (06:58→18:53)
--- NOTE | 2020-01-26 07:01 | Diag Imaging Result Doc PS360 ---
EXAM: CHEST-1 VIEW INDICATION: sepsis bundle TECHNIQUE: One view COMPARISON: 01/24/2020 FINDINGS: The lungs are grossly clear. There is no discrete pleural fluid collection or pneumothorax. The cardiomediastinal silhouette and central vasculature are grossly unremarkable. IMPRESSION: No evidence of acute pathology by plain radiograph. Electronically signed by Jung Lopez 01/26/2020 6:59 AM
[2020-01-26] MEDS: PATIENT'S OWN MED PO SCH ×8 (08:20→21:28)
[2020-01-26] MEDS ORDERED: ASPIRIN PO SCH (09:00)
[2020-01-26] MEDS: SOLU-MEDROL 1,000 MG in NS 100 ML IV SCH (09:12)
[2020-01-26] MEDS: VITAMIN E PO SCH (09:13)
[2020-01-26] MEDS: VALTREX PO SCH ×2 (09:13→21:25)
[2020-01-26] MEDS: VITAMIN D PO SCH (09:13)
[2020-01-26] MEDS: COENZYME Q10 PO SCH (09:14)
[2020-01-26] MEDS: VITAMIN C PO SCH (09:14)
[2020-01-26] MEDS: FISH OIL CONCENTRATE PO SCH (09:14)
--- NOTE | 2020-01-26 10:16 | NEUROLOGY PROGRESS NOTE ---
DATE: 01/26/2020 Ms. Jin reports some improvement in left leg strength since I saw her late yesterday. She has not noticed any new problems. She still has trouble moving her left foot. Her brain MRI, cervical MRI, lumbar MRI, and thoracic MRI, all done with and without contrast, were unremarkable. Specifically, there was no evidence of active MS plaque or other acute lesion. In light of her stable course, clinical improvement, negative MRI findings, I do not think we have to do anything urgently from a neurology standpoint. I encouraged her to be careful with gait and activities, and I hope she can be discharged soon. I told her to be in touch with Dr. Wolf's office for further instructions soon after discharge. Thanks for asking neurology to see Ms. Jin here. cc: Osmani Villanueva III, MD
--- NOTE | 2020-01-26 20:33 | PROGRESS NOTE ---
DATE: 01/26/2020 SUBJECTIVE: The patient has no major complaints. OBJECTIVE: Vital Signs: Blood pressure is 136/78, heart rate of 81, respiratory rate of 20, temperature 98 degrees, 98% on room air. Cardiovascular: Regular rate and rhythm. Pulmonary: Bilateral breath sounds, clear to auscultation. GI: Soft, nontender, nondistended. Bowel sounds are positive. Extremities: She is still weak in her left leg. LABORATORY DATA: Really is unchanged. A little bit of elevation in her glucose. Her CK is mildly elevated at 863, but CRP is normal, 0.11. For some reason, CRP checked was a heart sensitivity one which is, I do not think the one. The lactate been up a little bit. She has had a TSH but I do not see that we have checked a B12 or folate, so we will go ahead and do that. IMPRESSION AND PLAN: Presumed multiple sclerosis (MS) exacerbation but her plaques are negative so I am really not sure what is causing her symptomatology. She has been on high dose steroids but, again, she does not have clinical objective evidence of MS plaques based on her MRI or any of her other imaging of her spine. She has had an MRI of her lumbar, cervical and thoracic spine and there is no pathology. So she is getting high-dose steroid treatment which I think we will stop on the . I think we may give it to her through tomorrow and then I think she can go home on a steroid taper until she follows up with Dr. Wolf. At this point I do not really think we are treating active MS since she does not have any symptomatology but we will continue to follow. cc: Ja Mari MD [facility]
[2020-01-26] MEDS: RESTORIL PO PRN (21:25)
[2020-01-27] MEDS: NS 1,000 ML IV SCH ×2 (04:25→17:58)
[2020-01-27] MEDS: LIORESAL PO PRN ×2 (04:25→10:16)
[2020-01-27] MEDS: TYLENOL PO PRN ×2 (04:25→10:16)
[2020-01-27] MEDS: SYNTHROID PO SCH (06:10)
[2020-01-27] MEDS: HUMALOG SUBQ SCH ×3 (06:18→17:58)
[2020-01-27] MEDS: VALTREX PO SCH (10:00)
[2020-01-27] MEDS: SOLU-MEDROL 1,000 MG in NS 100 ML IV SCH (10:01)
[2020-01-27] MEDS: VITAMIN E PO SCH (10:01)
[2020-01-27] MEDS: VITAMIN D PO SCH (10:02)
[2020-01-27] MEDS: PATIENT'S OWN MED PO SCH ×7 (10:02→10:03)
[2020-01-27] MEDS: VITAMIN C PO SCH (10:02)
[2020-01-27] MEDS: COENZYME Q10 PO SCH (10:03)
[2020-01-27] MEDS: FISH OIL CONCENTRATE PO SCH (10:03)
--- NOTE | 2020-01-27 13:21 | NEUROLOGY PROGRESS NOTE ---
DATE: 01/27/2020 LOCATION: Room 427. Ms. Jin reports continued noticing improvement in left leg strength and in her gait. She does not notice any new problems. Brain and spine imaging were all unremarkable. I agree with the plans as outlined in attending's note for discharge and follow up with Dr. Wolf. I encouraged her to continue to be careful with her gait and activities as she recovers. Thank you for asking Neurology to see Ms. Jin. cc: MD CATHY Garcia III
[2020-01-27 15:35] VITALS: BP 139/78
--- NOTE | 2020-01-27 18:32 | DISCHARGE SUMMARY ---
ADMISSION DATE: 01/24/2020 DISCHARGE DATE: 01/27/2020 DISCHARGE DIAGNOSIS: Possible multiple sclerosis exacerbation, although she did not clearly have plaques on her MRI. CONSULTATIONS: Neurology. HOSPITAL COURSE: This is a 60-year-old female with left lower extremity weakness. She reports history of MS and is followed by Dr. Wolf. She has a history of mitral valve prolapse, hypothyroid. She is very functional. She works for [employer] apparently. They thought possibly she had a stroke based on her symptoms. MS is usually on the right side for her. She had multiple MRIs of her thoracic spine, her brain which showed some mild white matter microangiopathy but really nothing acute, cervical which she had some disc bulges but nothing--no cord compression, and lumbar also pretty much looked okay. Neurology was consulted and was concerned about multiple sclerosis. Spinal lesion would explain her urinary symptoms but would not explain the sensory and motor deficits in the same area, and her MRIs were all negative. So there was concern over a multiple sclerosis flare. She was empirically put on high-dose steroids. She did improve somewhat, but there was no plaque which to me I guess argues against possible MS, but, in any case, we will discharge her on steroid taper and let her follow up with her primary neurologist, Dr. Wolf who is her MS specialist. Her gait was improving and we will discharge her on her regular medications. DISCHARGE MEDICATIONS: Temazepam 15 at bedtime, aspirin 81 mg every other day, baclofen 10 q.i.d., coenzyme Q and calcium carbonate, omega-3 fatty acids, fingolimod or [place] 0.5 at night, chromium supplements, milk thistle supplement, Meloxicam 7.5 Saturday, Saturday and Saturday, Nuvigil 150, Synthroid 112 1/2-tab daily, vitamin C, turmeric, vitamin D, vitamin E, [place] p.r.n. pain 7.5, prednisone taper--slow taper, 40 for a week, 30 for a week, 20 for a week, 10 for a week, and then she will need to follow up with Dr. Wolf in 1 to 2 weeks, call for appointment. cc: Ja Mari MD
== END 2020-01-27 18:47 | disposition home or self-care (01) | DRG 60 ==
LOC: ED 12:56 → 4N 12:57 → SUATTDRO 12:57
PROVIDERS: ATTEND Internal Medicine